=== PATIENT | male | born 1970 | race Caucasian/White ===

== ENCOUNTER 2016-10-11 21:36 | Emergency (ER) ==
[2016-10-11 21:45] VITALS: BP 194/122; TEMP 98.3; BMI 37.1
[2016-10-11] MEDS ORDERED: CATAPRES PO STA ×2 (21:48→23:08)
[2016-10-11] MEDS ORDERED: NORVASC PO STA ×2 (21:48→23:07)
[2016-10-11] MEDS ORDERED: VASOTEC IV IVP STA (21:49)
[2016-10-11 22:01] LABS: BILIRUBIN,URINE Negative (NEGATIVE); KETONES,URINE Negative (NEGATIVE); LEUKOCYTE ESTERASE ,URINE Trace (NEGATIVE); NITRITE,URINE Negative (NEGATIVE); PH,URINE 5.5 (5-9); PROTEIN,URINE 2+ (NEGATIVE); URINE, BLOOD Trace-lysed (NEGATIVE)
[2016-10-11 22:06] LABS: ADD URINE MICROSCOPIC YES
[2016-10-11 22:07] LABS: BACTERIA,URINE TRACE (NOT PRESENT)
[2016-10-11 22:09] LABS: BASOPHILS % (AUTO) 0.4 % (0.0-3.0); EOSINOPHILS # (AUTO) 0.1 K/ul (0.0-0.7); EOSINOPHILS % (AUTO) 1.3 % (0.0-7.0); HEMATOCRIT 45.4 % (42.0-52.0); IMMATURE GRANULOCYTE % (AUTO) 0.3 % (0.0-5.0); LYMPHOCYTES # (AUTO) 2.6 K/uL (0.60-3.4); MEAN CORPUSCULAR HEMOGLOBIN 28.2 pg (27.0-31.0); MEAN CORPUSCULAR HGB CONC 35.2 (31.8-35.4); MEAN CORPUSCULAR VOLUME 79.9 fl (80.0-94.0); MONOCYTES # (AUTO) 0.6 K/uL (0.4-2.0); MONOCYTES % (AUTO) 6.7 (0-10); NEUTROPHILS # (AUTO) 5.8 K/ul (2.0-6.9); NEUTROPHILS % (AUTO) 63.3; PLATELET COUNT 243 10^3/uL (140-440); RED BLOOD COUNT 5.68 10^6/ul (4.70-6.10); WHITE BLOOD COUNT 9.23 K/ul (4.2-10.2)
[2016-10-11 22:50] LABS: ALBUMIN 4.3 g/dL (3.4-5.0); ALBUMIN/GLOBULIN RATIO 1.43; ANION GAP 15.3; BILIRUBIN,TOTAL 0.64 mg/dL (0.00-1.20); BUN/CREATININE RATIO 20.21; CALCIUM 9.5 mg/dL (8.2-10.2); CREATINE KINASE MB 2.5 ng/ml (0.0-3.6); CREATININE 0.94 mg/dL (0.60-1.10); POTASSIUM 3.3 mmol/L (3.5-5.1); TOTAL PROTEIN 7.3 g/dL (6.4-8.2); TROPONIN I 0.011 ng/ml (0.0000-0.4000)
[2016-10-11] MEDS ORDERED: APRESOLINE PO STA (23:37)
--- NOTE | 2016-10-12 00:54 | ED.PDOC ---
General ED Provider: Dr. NASIM KING-ER Chief Complaint: Hypertension Stated Complaint: masha not been taking my bp meds --its 230/120--denies krishnan or chest painj Time Seen by Physician: 21:40 Mode of Arrival: Walk-In Information Source: Patient Exam Limitations: No limitations Nursing and Triage Documentation Reviewed and Agree: Yes Cardiovascular Complaint Exam - Hypertension Complaint/Exam Onset/Duration: 3 dayus Symptoms Are: Still present Timing: Constant Reported B/P Prior to Arrival: 230/130 Aggravating: Reports: None Alleviating: Reports: None Associated Signs and Symptoms: Denies: Chest pain, Vision changes, Anxiety, Recent stress, Headache, Numbness, Tingling, Weakness, Dizziness, Short of air, Swelling Related History: Reports: Similar episode Recent Change in Medications: No A/V Nicking: No Papilledema Present: No JVD Present: No Carotid Bruit Present: No Femoral Pulses Bounding: No Quality Indicator For Non-Traumatic Chest Pain/Syncope: EKG Performed Review of Systems - Review Of Systems Constitutional: Reports: No symptoms Eyes: Reports: No symptoms Ears, Nose, Mouth, Throat: Reports: No symptoms Respiratory: Reports: No symptoms Cardiac: Reports: No symptoms GI: Reports: No symptoms : Reports: No symptoms Musculoskeletal: Reports: No symptoms Skin: Reports: No symptoms Neurological: Reports: No symptoms Endocrine: Reports: No symptoms Hematologic/Lymphatic: Reports: No symptoms All Other Systems: Reviewed and Negative Past Medical History - Past Medical History Endocrine: Reports: Unknown Cardiovascular: Reports: Unknown Respiratory: Reports: Unknown Hematological: Reports: Unknown Gastrointestinal: Reports: Unknown Genitourinary: Reports: Unknown Neuro/Psych: Reports: Unknown Musculoskeletal: Reports: Unknown Cancer: Reports: Unknown - Surgical History General Surgical History: Reports: Unknown - Family History Family History: Reports: Unknown - Social History Smoking Status: Current every day smoker Hx Substance Use: No Alcohol Screening: Occasionally Lives: With family - Immunizations Tetanus Shot up to Date: No (unsure) Physical Exam - Physical Exam Appearance: Well-appearing, No pain distress, Well-nourished Eyes: KAMILLA, EOMI, Conjunctiva clear ENT: Ears normal, Nose normal, Oropharynx normal Neck: Supple Respiratory: Airway patent, Breath sounds clear, Breath sounds equal, Respirations nonlabored Cardiovascular: RRR, Pulses normal, No rub, No murmur GI/: Soft, Nontender, No masses, Bowel sounds normal, No Organomegaly Musculoskeletal: Normal strength, ROM intact, No edema, No calf tenderness Skin: Warm, Dry, Normal color Neurological: Sensation intact, Motor intact, Reflexes intact, Cranial nerves intact, Alert, Oriented Psychiatric: Affect appropriate, Mood appropriate Interpretation - EKG Interpretation Time of EKG #1: 00:54 Rate: Normal Rhythm: Sinus Ectopy: None Cedar: NL ST Segment: Normal Re-Evaluation - Re-Evaluation Time of Re-Evaluation: 00:54 Status: Improved Vital Signs Stable: Yes Pain Level: 0 Appearance: NAD Lungs: Clear Skin: Warm and Dry Neuro: Alert and Oriented X3 CV: RRR Critical Care Note - Critical Care Note Total Time (mins): 0 Course - Course Hematology/Chemistry: 10/11/16 22:00 10/11/16 22:00 Orders, Labs, Meds: Lab Review 10/11/16 10/11/16 21:51 22:00 WBC 9.23 RBC 5.68 Hgb 16.0 Hct 45.4 MCV 79.9 L MCH 28.2 MCHC 35.2 RDW Coeff of [place] 13.6 Plt Count 243 Immature Gran % (Auto) 0.3 Neut % (Auto) 63.3 Lymph % (Auto) 28.0 Payne % (Auto) 6.7 Eos % (Auto) 1.3 Baso % (Auto) 0.4 Immature Gran # (Auto) 0.0 Neut # 5.8 Lymph # 2.6 Payne # 0.6 Eos # 0.1 Baso # 0.0 Sodium 140 Potassium 3.3 L Chloride 105 Carbon Dioxide 23 Anion Gap 15.3 BUN 19 H Creatinine 0.94 Estimated GFR (MDRD) 86.00 BUN/Creatinine Ratio 20.21 Glucose 116 H Calcium 9.5 Total Bilirubin 0.64 AST 27 ALT 38 Alkaline Phosphatase 72 Total Creatine Kinase 487 CK-MB (CK-2) 2.5 CK-MB (CK-2) % 0.66219 Troponin I 0.0110 Total Protein 7.3 Albumin 4.3 Globulin 3.0 Albumin/Globulin Ratio 1.43 TSH 2.593 Free T4 1.08 Urine Color Yellow Urine Clarity Clear Urine pH 5.5 Ur Specific [place] >=1.030 Urine Protein 2+ Urine Glucose (UA) Negative Urine Ketones Negative Urine Blood Trace-lysed Urine Nitrite Negative Urine Bilirubin Negative Urine Urobilinogen 0.2 Ur Leukocyte Esterase Trace Urine Microscopic RBC 2-5 Urine Microscopic WBC 5-10 Ur Squamous Epith Cells 0-2 Urine Bacteria Trace Orders Category Date Time Status EKG-(ED ONLY) Stat CARDIO 10/11/16 21:47 Completed Van Driver [ED CRACKER AND COOKIE MACHINE OPERATOR APPLIED] .ONCE EMERGENCY 10/11/16 21:47 Active IV [ED IV/MEDIPORT/POWERPORT] .ONCE EMERGENCY 10/11/16 21:49 Active CBC W/ AUTO DIFF Stat LAB 10/11/16 22:00 Completed COMPREHENSIVE METABOLIC PANEL Stat LAB 10/11/16 22:00 Completed CREATINE KINASE Stat LAB 10/11/16 22:00 Completed FREE T4 (FREE THYROXINE) Stat LAB 10/11/16 22:00 Completed THYROID STIMULATING HORMONE Stat LAB 10/11/16 22:00 Completed TROPONIN I Stat LAB 10/11/16 22:00 Completed URINALYSIS C & S IF INDICATED Stat LAB 10/11/16 21:51 Completed URINE CULTURE Stat LAB 10/11/16 22:07 Received 0.9 % Sodium Chloride [Saline Flush] MEDS 10/11/16 21:49 Ordered 1 syr IVF PRN PRN Amlodipine Besylate [Norvasc] MEDS 10/11/16 21:48 Discontinued 5 mg PO ONCE STA Amlodipine Besylate [Norvasc] MEDS 10/11/16 23:07 Discontinued 5 mg PO ONCE STA Clonidine HCl [Catapres] MEDS 10/11/16 21:48 Discontinued 0.1 mg PO ONCE STA Clonidine HCl [Catapres] MEDS 10/11/16 23:08 Discontinued 0.1 mg PO ONCE STA Enalaprilat Dihydrate [Vasotec IV] MEDS 10/11/16 21:49 Discontinued 2.5 mg IVP ONCE STA Hydralazine HCl [Apresoline] MEDS 10/11/16 23:37 Discontinued 25 mg PO ONCE STA Medications Generic Name Dose Route Start Last Admin Trade Name Freq PRN Reason Stop Dose Admin Sodium Chloride 1 syr 10/11/16 21:49 10/11/16 22:14 Saline Flush IVF 1 syr PRN PRN Administration To flush IV Discontinued Medications Generic Name Dose Route Start Last Admin Trade Name Freq PRN Reason Stop Dose Admin Amlodipine Besylate 5 mg 10/11/16 21:48 10/11/16 22:13 Norvasc PO 10/11/16 21:49 5 mg ONCE STA Administration Amlodipine Besylate 5 mg 10/11/16 23:07 10/11/16 23:13 Norvasc PO 10/11/16 23:08 5 mg ONCE STA Administration Clonidine 0.1 mg 10/11/16 21:48 10/11/16 22:13 Catapres PO 10/11/16 21:49 0.1 mg ONCE STA Administration Clonidine 0.1 mg 10/11/16 23:08 10/11/16 23:13 Catapres PO 10/11/16 23:09 0.1 mg ONCE STA Administration Enalaprilat 2.5 mg 10/11/16 21:49 10/11/16 22:13 Vasotec Iv IVP 10/11/16 21:50 2.5 mg ONCE STA Administration Hydralazine HCl 25 mg 10/11/16 23:37 10/11/16 23:47 Apresoline PO 10/11/16 23:38 25 mg ONCE STA Administration Vital Signs: Temp Pulse Resp BP Pulse Ox 10/11/16 21:37 98.3 F 77 20 194/122 H 98 PINKY Risk Score PINKY Risk Score: Risk Score Odds of by 30D 0 0.1 (0.1-0.2) 1 0.3 (0.2-0.3) 2 0.4 (0.3-0.5) 3 0.7 (0.6-0.9) 4 1.2 (1.0-1.5) 5 2.2 (1.9-2.6) 6 3.0 (2.5-3.6) 7 4.8 (3.8-6.1) Departure - Departure Time of Disposition: 00:54 Disposition: HOME SELF-CARE Discharge Problem: HTN (hypertension) Qualifiers: Hypertension type: essential hypertension Qualifier Code: (I10) Essential ( primary) hypertension Instructions: Chronic Hypertension (ED) Condition: Good Pt referred to PMD for follow-up: Yes Additional Instructions: norvasc 10 mg #30---zestoretic 20/25 q daily #30--monitor bp and f/u with pcp this week Allergies/Adverse Reactions: Allergies No Known Allergies Allergy (Unverified 10/11/16 21:43) Home Medications: Ambulatory Orders 1 [No Reported Medications] 10/11/16 Disposition Discussed With: Patient, Family
== END 2016-10-12 01:02 | disposition home or self-care (01) ==
LOC: ED 21:36
DX: I10 Essential (primary) hypertension (principal); Z91.14 Patient's other noncompliance with medication regimen; F17.210 Nicotine dependence, cigarettes, uncomplicated
CPT/HCPCS: 36415; 80053; 81001; 82550; 82553; 84439; 84443; 84484; 85025; 87086; 93005; 93010; 96374; 99284

== ENCOUNTER 2017-02-04 13:08 | Outpatient (CLI) ==
[2017-02-04 13:37] LABS: BASOPHILS # (AUTO) 0.1 K/uL (0-0.2); BASOPHILS % (AUTO) 0.8 % (0.0-3.0); EOSINOPHILS # (AUTO) 0.3 K/ul (0.0-0.7); EOSINOPHILS % (AUTO) 4.4 % (0.0-7.0); HEMATOCRIT 46.9 % (42.0-52.0); HEMOGLOBIN 16.4 g/dl (14.0-18.0); IMMATURE GRANULOCYTE % (AUTO) 0.6 % (0.0-5.0); LYMPHOCYTES # (AUTO) 1.7 K/uL (0.60-3.4); LYMPHOCYTES % (AUTO) 27.3 (10.0-50.0); MEAN CORPUSCULAR HEMOGLOBIN 28.8 pg (27.0-31.0); MEAN CORPUSCULAR VOLUME 82.4 fl (80.0-94.0); MONOCYTES # (AUTO) 0.3 K/uL (0.4-2.0); MONOCYTES % (AUTO) 4.4 (0-10); NEUTROPHILS # (AUTO) 3.9 K/ul (2.0-6.9); NEUTROPHILS % (AUTO) 62.5; PLATELET COUNT 291 10^3/uL (140-440); RED BLOOD COUNT 5.69 10^6/ul (4.70-6.10)
[2017-02-04 14:07] LABS: ALBUMIN/GLOBULIN RATIO 1.08; ANION GAP 14.8; BILIRUBIN,TOTAL 0.7 mg/dL (0.00-1.20); BUN/CREATININE RATIO 11.22; CALCIUM 10.4 mg/dL (8.2-10.2); CHOL/HDL RATIO 4.5 (4.5-6.4); CREATININE 0.98 mg/dL (0.60-1.10); POTASSIUM 3.8 mmol/L (3.5-5.1); TOTAL PROTEIN 7.7 g/dL (6.4-8.2)
== END 2017-02-04 13:09 | disposition home or self-care (01) ==
LOC: LAB 13:08
PROVIDERS: ATTEND Emergency Medicine
DX: R73.9 Hyperglycemia, unspecified (principal); E66.9 Obesity, unspecified; I10 Essential (primary) hypertension
CPT/HCPCS: 36415; 80053; 80061; 83036; 84443; 85025

== ENCOUNTER 2017-04-19 13:11 | Outpatient (CLI) ==
[2017-04-19 13:38] LABS: ALBUMIN 4.5 g/dL (3.4-5.0); ALBUMIN/GLOBULIN RATIO 1.25; ANION GAP 19.4; BILIRUBIN,TOTAL 0.8 mg/dL (0.00-1.20); BUN/CREATININE RATIO 11.51; CALCIUM 10.4 mg/dL (8.2-10.2); CREATININE 1.39 mg/dL (0.60-1.10); POTASSIUM 4.4 mmol/L (3.5-5.1); TOTAL PROTEIN 8.1 g/dL (6.4-8.2)
[2017-04-19 21:30] VITALS: BMI 34.3
== END 2017-04-19 13:12 | disposition home or self-care (01) ==
LOC: LAB 13:11
PROVIDERS: ATTEND Emergency Medicine
DX: R73.9 Hyperglycemia, unspecified (principal); I10 Essential (primary) hypertension
CPT/HCPCS: 36415; 80053; 83036

== ENCOUNTER 2017-04-19 17:38 | Inpatient (IN) ==
--- NOTE | 2017-04-19 18:22 | ED.PDOC ---
General ED Provider: Dr. CONNIE LAUREANO Chief Complaint: Diabetes Stated Complaint: high blood sugar Time Seen by Physician: 17:45 (the clinic contacted the pt for high blood sugar ) Mode of Arrival: Walk-In Information Source: Patient Exam Limitations: No limitations [facility] Nursing and Triage Documentation Reviewed and Agree: Yes (no chest pain) Reviewed sepsis parameters & appropriate labs ordered?: Yes System Inflammatory Response Syndrome: Not Applicable System Inflammatory Response Syndrome: Not Applicable Endocrine Complaint Exam - Diabetic Complication Complaint/Exam Onset/Duration: today Timing: Constant Initial Severity: Moderate Current Severity: Moderate Character: Alert Aggravating: Reports: None Alleviating: Reports: None Associated Signs and Symptoms: Reports: Polyuria. Denies: Decreased LOC, Polydipsia, Polyphagia, Weight loss, Abdominal pain, Nausea, Vomiting, Fever, Diaphoresis, Fruity breath Related History: Reports: DM 2 Cardiac Risk Factors: Reports: Hypertension, Elevated lipids CVA Risk Factors: Reports: Hypertension Serious Bacterial Infection Risk Factors: Reports: None Related Surgical History: Reports: None Acetone on Breath: No Dry Mucous Membranes: No Kussmaul Respirations: No Glascow Coma Scale (see protocol): 15 Meningeal Signs: No Focal Weakness: None Focal Sensory Loss: None Gait: Normal Nystagmus Present: No Gag Reflex Present: Yes Finger to Nose: Normal Babinski Sign: Negative Right, Negative Left Differential Diagnoses: Diabetic Ketoacidosis, Hyperosmolar State, Hypoglycemia , Pneumonia Quality Indicator For Non-Traumatic Chest Pain/Syncope: EKG Performed Review of Systems - Review Of Systems Constitutional: Reports: Chills, Fever, Malaise Eyes: Reports: No symptoms Ears, Nose, Mouth, Throat: Reports: No symptoms Respiratory: Reports: Cough, Short of air Cardiac: Reports: No symptoms GI: Reports: No symptoms : Reports: No symptoms Musculoskeletal: Reports: No symptoms Skin: Reports: No symptoms Neurological: Reports: No symptoms Endocrine: Reports: No symptoms Hematologic/Lymphatic: Reports: No symptoms All Other Systems: Reviewed and Negative Past Medical History - Past Medical History Previously Healthy: Yes Endocrine: Reports: Unknown Cardiovascular: Reports: Unknown Respiratory: Reports: Unknown Hematological: Reports: Unknown Gastrointestinal: Reports: Unknown Genitourinary: Reports: Unknown Neuro/Psych: Reports: Unknown Musculoskeletal: Reports: Unknown Cancer: Reports: Unknown - Surgical History General Surgical History: Reports: Unknown - Family History Family History: Reports: Unknown - Social History Smoking Status: Current every day smoker, Heavy tobacco smoker Hx Substance Use: No Alcohol Screening: Occasionally Physical Exam - Physical Exam Appearance: Well-appearing, No pain distress, Well-nourished Eyes: KAIMLLA, EOMI, Conjunctiva clear ENT: Ears normal, Nose normal, Oropharynx normal Respiratory: Rhonchi Cardiovascular: RRR, Pulses normal, No rub, No murmur GI/: Soft, Nontender, No masses, Bowel sounds normal, No Organomegaly Musculoskeletal: Normal strength, ROM intact, No edema, No calf tenderness Skin: Warm, Dry, Normal color Neurological: Sensation intact, Motor intact, Reflexes intact, Cranial nerves intact, Alert, Oriented Psychiatric: Affect appropriate, Mood appropriate Critical Care Note - Critical Care Note Total Time (mins): 0 Course - Course Hematology/Chemistry: 04/23/17 05:25 04/24/17 14:03 Orders, Labs, Meds: Lab Review 04/19/17 04/19/17 04/19/17 18:03 18:03 18:24 WBC 10.98 H RBC 5.64 Hgb 15.7 Hct 43.3 MCV 76.8 L MCH 27.8 MCHC 36.3 H RDW Coeff of [place] 12.1 Plt Count 256 Immature Gran % (Auto) 0.7 Neut % (Auto) 81.7 Lymph % (Auto) 10.9 Piatt % (Auto) 5.7 Eos % (Auto) 0.5 Baso % (Auto) 0.5 Immature Gran # (Auto) 0.1 Neut # 9.0 H Lymph # 1.2 Piatt # 0.6 Eos # 0.1 Baso # 0.1 Puncture Site Rb O2 Saturation 95.0 ABG pH 7.372 ABG pCO2 32.4 L ABG pO2 75.0 L ABG HCO3 18.8 L ABG Total CO2 20 L ABG Base Excess -6 L Edgar Test + FiO2 % 21.0 Sodium 128 L Potassium 4.5 Chloride 88 L Carbon Dioxide 20 L Anion Gap 24.5 BUN 23 H Creatinine 2.46 H D Estimated GFR (MDRD) 28.00 BUN/Creatinine Ratio 9.34 Glucose 720 H* D Calcium 10.0 Total Bilirubin 0.96 AST 19 ALT 32 Alkaline Phosphatase 152 H D Total Protein 7.7 Albumin 4.3 Globulin 3.4 Albumin/Globulin Ratio 1.26 Orders Category Date Time Status ADMIT PATIENT INPATIENT .TO MEDSURG (MONITORED BED) ADMISSION 04/19/17 18: 52 Completed ABG DRAW REQUEST Stat CARDIO 04/19/17 18:24 Completed EKG-(ED ONLY) Stat CARDIO 04/19/17 18:23 Completed EKG-(IP & OP ONLY) DAILY CARDIO 04/20/17 06:00 Completed EKG-(IP & OP ONLY) DAILY CARDIO 04/21/17 06:00 Completed EKG-(IP & OP ONLY) DAILY CARDIO 04/22/17 06:00 Completed ACTIVITY .BR with BRP CARE 04/19/17 18:52 Active BLOOD GLUCOSE MONITORING Q4HR CARE 04/19/17 18:52 Completed GIVE HS SNACK 2100 CARE 04/19/17 18:54 Active INTAKE & OUTPUT Q8HR CARE 04/19/17 18:52 Active Neuro Check [NEUROLOGICAL CHECKS] Q6HR CARE 04/19/17 18:56 Inactive TELEMETRY MONITORING TELE CARE 04/19/17 18:53 Active VITAL SIGNS Q4HR CARE 04/19/17 18:52 Active ADA 1800 SAMRA. DIET DIETARY 04/19/17 Dinner Completed HS SNACK DIETARY 04/19/17 Dinner Completed ABG Stat LAB 04/19/17 18:24 Completed BASIC METABOLIC PANEL DAILY@0600 LAB 04/20/17 04:30 Completed BASIC METABOLIC PANEL DAILY@0600 LAB 04/21/17 04:30 Completed CBC W/ AUTO DIFF DAILY@0600 LAB 04/20/17 04:30 Completed CBC W/ AUTO DIFF DAILY@0600 LAB 04/21/17 04:30 Completed CBC W/ AUTO DIFF Stat LAB 04/19/17 18:03 Completed COMPREHENSIVE METABOLIC PANEL Stat LAB 04/19/17 18:03 Completed URINALYSIS C & S IF INDICATED Stat LAB 04/19/17 18:23 Completed Insulin Regular, Human [Humulin R] MEDS 04/19/17 18:55 Discontinued See Protocol SUBCUT PRN PRN Lisinopril [Zestril] MEDS 04/19/17 21:00 Discontinued 40 mg PO BID Metoprolol Tartrate [Lopressor] MEDS 04/19/17 21:00 Discontinued 50 mg PO BID Sodium Chloride 0.9% [Sodium Chloride] 1,000 ml MEDS 04/19/17 19:00 Discontinued IV 125 mls/hr CHEST, 2 VIEWS PA & LAT Stat RADS 04/19/17 18:23 Completed Medications Discontinued Medications Generic Name Dose Route Start Last Admin Trade Name [place] PRN Reason Stop Dose Admin Amlodipine Besylate 10 mg 04/20/17 09:00 04/25/17 08:13 Norvasc PO 10 mg DAILY MONO Administration Enoxaparin Sodium 40 mg 04/21/17 09:00 04/25/17 08:13 Lovenox SUBCUT 40 mg DAILY MONO Administration Enoxaparin Sodium 40 mg 04/20/17 09:26 04/20/17 11:17 Lovenox SUBCUT 04/20/17 09:27 40 mg ONCE STA Administration Glipizide 10 mg 04/20/17 17:30 04/21/17 18:28 Glucotrol PO 10 mg BIDWM MONO Administration Sodium Chloride 1,000 mls @ 125 mls/hr 04/19/17 19:00 04/20/17 12:52 Sodium Chloride IV Not Given .Q8H MONO Insulin Human Regular 100 unit 100 mls @ 5 mls/hr 04/19/17 19:45 04/20/17 10: 39 / Sodium Chloride IV 4 unit/hr .Q20H MONO 4 mls/hr Protocol Titration 5 UNIT/HR Potassium Chloride/Dextrose/Sod Cl 1,000 mls @ 125 mls/hr 04/20/17 11:30 11:22 D5%-Ns-Kcl 20 Meq/L Iv Jenna IV 125 mls/hr .Q8H MONO Administration Potassium Chloride/Dextrose/Sod Cl 1,000 mls @ 100 mls/hr 04/20/17 19:30 18:29 D5%-Ns-Kcl 20 Meq/L Iv Jenna IV Not Given .Q10H MONO Insulin Human Regular 100 unit 100 mls @ 4 mls/hr 04/20/17 19:30 04/22/17 18: 29 / Sodium Chloride IV Not Given .Q24H MONO Protocol 4 UNIT/HR Dextrose/Sodium Chloride 1,000 mls @ 100 mls/hr 04/22/17 17:00 04/24/17 02:29 Dextrose 5%-Ns Iv Solution IV Not Given .Q10H MONO Insulin Human Isoph/Insulin Regular 24 unit 04/22/17 08:00 04/25/17 08:12 Humulin 70-30 SUBCUT 24 unit BID INSULIN MONO Administration Insulin Human Isoph/Insulin Regular 20 unit 04/24/17 17:58 04/24/17 18:01 Humulin 70-30 SUBCUT 04/24/17 17:59 20 unit ONCE STA Administration Insulin Human Regular 0 unit 04/19/17 18:55 04/20/17 13:22 Humulin R SUBCUT 6 unit PRN PRN Administration Hyperglycemica Protocol Insulin Human Regular 0 unit 04/22/17 07:53 04/25/17 10:18 Humulin R SUBCUT 3 unit PRN PRN Administration Hyperglycemica Protocol Lisinopril 40 mg 04/19/17 21:00 04/25/17 08:13 Zestril PO 40 mg BID MONO Administration Metformin HCl 1,000 mg 04/20/17 17:30 04/25/17 08:13 Glucophage PO 1,000 mg BIDWM MONO Administration Metoprolol Tartrate 50 mg 04/19/17 21:00 04/25/17 08:12 Lopressor PO 50 mg BID MONO Administration Pantoprazole Sodium 40 mg 04/21/17 06:30 04/25/17 05:49 Protonix PO 40 mg QDAC MONO Administration Pantoprazole Sodium 40 mg 04/20/17 08:47 04/20/17 09:12 Protonix PO 04/20/17 08:48 40 mg ONCE STA Administration Potassium Chloride 40 meq 04/20/17 08:47 04/20/17 09:11 K-Dur PO 04/20/17 08:48 40 meq ONCE STA Administration Potassium Chloride 40 meq 04/23/17 14:20 04/23/17 14:55 K-Dur PO 04/23/17 14:21 40 meq ONCE STA Administration Sodium Chloride 1 syr 04/19/17 19:31 04/19/17 19:33 Saline Flush IVF 1 syr PRN PRN Administration To flush IV Sodium Chloride 1 syr 04/23/17 21:00 04/24/17 20:21 Saline Flush IVF 1 syr Q8HR MONO Administration Vital Signs: Temp Pulse Resp BP Pulse Ox 04/19/17 17:39 98.0 F 88 20 108/67 95 Departure - Departure Time of Disposition: 11:00 Disposition: ADMITTED INPATIENT Discharge Problem: Uncontrolled diabetes mellitus Qualifiers: Diabetes mellitus type: type 2 Condition: Good Pt referred to PMD for follow-up: Yes Allergies/Adverse Reactions: Allergies No Known Allergies Allergy (Verified 04/19/17 17:50) Home Medications: Ambulatory Orders Metformin HCl 1,000 mg PO BID #60 tablet 04/25/17 Disposition Discussed With: Patient, Family
[2017-04-19] MEDS ORDERED: HUMULIN R SUBCUT PRN (18:55)
[2017-04-19] MEDS: SODIUM CHLORIDE 1,000 ML IV SCH (19:34)
[2017-04-19] MEDS ORDERED: HUMULIN R 100 UNIT in SODIUM CHLORIDE 100 ML IV SCH (19:45)
[2017-04-19] MEDS ORDERED: TYLENOL LIQUID 650 MG/20.3 ML ONE (20:51)
[2017-04-19] MEDS ORDERED: LOPRESSOR ONE (20:51)
[2017-04-19] MEDS: ZESTRIL PO SCH (20:58)
[2017-04-19 21:30] VITALS: BMI 34.3
[2017-04-19] MEDS: LOPRESSOR PO SCH (22:34)
[2017-04-20] MEDS: SODIUM CHLORIDE 1,000 ML IV SCH ×2 (03:43→12:52)
--- NOTE | 2017-04-20 07:45 | DI ---
EXAM: PA and lateral views of the chest HISTORY: Cough. COMPARISON: None FINDINGS: The cardiomediastinal silhouette is normal. There is no pneumothorax or pleural effusion. There is no consolidation, nodule or mass. The osseous structures demonstrate degenerative disease . There are surgical clips in the upper abdomen. IMPRESSION: No acute cardiopulmonary process
[2017-04-20] MEDS ORDERED: PROTONIX PO STA (08:47)
[2017-04-20] MEDS ORDERED: K-DUR PO STA (08:47)
[2017-04-20] MEDS ORDERED: NON-FORMULARY MEDICATION (Amlodipine Besylate [Amlodipine Besylate] 10 MG) PO SCH (09:00)
[2017-04-20] MEDS: NORVASC PO SCH (09:11)
[2017-04-20] MEDS: LOPRESSOR PO SCH ×2 (09:12→20:41)
[2017-04-20] MEDS: ZESTRIL PO SCH ×2 (09:12→20:41)
[2017-04-20] MEDS ORDERED: LOVENOX SUBCUT STA (09:26)
[2017-04-20] MEDS ORDERED: D5%-NS-KCL 20 MEQ/L IV SOL 1,000 ML IV SCH (11:30)
--- NOTE | 2017-04-20 11:52 | CT ---
EXAM: CT scan thorax without contrast HISTORY: Chest pressure COMPARISON: None. FINDINGS: Contiguous axial images obtained through the thorax without contrast utilizing 5-mm collim ation. Sagittal and coronal reconstructions were imaged and reviewed.. The thoracic inlet is unrema rkable. There are subcentimeter pretracheal lymph nodes. The heart is normal in size with mild derian nary artery calcification. There is no pericardial effusion. The lungs are clear bilaterally. Fatt y infiltration is seen within the visualized liver. There has been prior cholecystectomy.. Degenera tive changes are seen in the mid dorsal spine. IMPRESSION: No acute intrathoracic findings.. Prior cholecystectomy. Fatty liver.
[2017-04-20] MEDS: GLUCOPHAGE PO SCH (17:57)
[2017-04-20] MEDS: GLUCOTROL PO SCH (17:57)
[2017-04-20] MEDS: HUMULIN R 100 UNIT in SODIUM CHLORIDE 100 ML IV SCH (19:37)
[2017-04-20] MEDS: D5%-NS-KCL 20 MEQ/L IV SOL 1,000 ML IV SCH (19:45)
[2017-04-20] MEDS ORDERED: HUMULIN R ONE (23:55)
[2017-04-21] MEDS: D5%-NS-KCL 20 MEQ/L IV SOL 1,000 ML IV SCH ×2 (05:47→15:45)
[2017-04-21] MEDS: PROTONIX PO SCH (05:47)
[2017-04-21] MEDS: NORVASC PO SCH (08:41)
[2017-04-21] MEDS: GLUCOTROL PO SCH ×2 (08:41→18:28)
[2017-04-21] MEDS: LOPRESSOR PO SCH ×2 (08:41→21:01)
[2017-04-21] MEDS: GLUCOPHAGE PO SCH ×2 (08:41→18:28)
[2017-04-21] MEDS: ZESTRIL PO SCH ×2 (08:41→21:01)
[2017-04-21] MEDS: LOVENOX SUBCUT SCH (08:42)
[2017-04-22] MEDS: D5%-NS-KCL 20 MEQ/L IV SOL 1,000 ML IV SCH ×2 (05:06→18:29)
[2017-04-22] MEDS: PROTONIX PO SCH (05:43)
[2017-04-22] MEDS: GLUCOPHAGE PO SCH ×2 (08:09→16:50)
[2017-04-22] MEDS: ZESTRIL PO SCH ×2 (08:09→21:23)
[2017-04-22] MEDS: NORVASC PO SCH (08:09)
[2017-04-22] MEDS: LOPRESSOR PO SCH ×2 (08:10→21:23)
[2017-04-22] MEDS: LOVENOX SUBCUT SCH (08:10)
[2017-04-22] MEDS: HUMULIN 70-30 SUBCUT SCH ×2 (08:16→16:50)
[2017-04-22] MEDS: HUMULIN R SUBCUT PRN ×2 (14:12→22:05)
[2017-04-22] MEDS: DEXTROSE 5%-NS IV SOLUTION 1,000 ML IV SCH (16:53)
[2017-04-22] MEDS: HUMULIN R 100 UNIT in SODIUM CHLORIDE 100 ML IV SCH (18:29)
[2017-04-23] MEDS: HUMULIN R SUBCUT PRN ×4 (02:24→14:56)
[2017-04-23] MEDS: DEXTROSE 5%-NS IV SOLUTION 1,000 ML IV SCH (03:29)
[2017-04-23] MEDS: PROTONIX PO SCH (06:08)
[2017-04-23] MEDS: HUMULIN 70-30 SUBCUT SCH ×2 (07:17→17:13)
[2017-04-23] MEDS: NORVASC PO SCH (09:56)
[2017-04-23] MEDS: ZESTRIL PO SCH ×2 (09:56→20:52)
[2017-04-23] MEDS: GLUCOPHAGE PO SCH ×2 (09:57→17:11)
[2017-04-23] MEDS: LOPRESSOR PO SCH ×2 (09:57→20:52)
[2017-04-23] MEDS: LOVENOX SUBCUT SCH (09:57)
[2017-04-23] MEDS ORDERED: K-DUR PO STA (14:20)
[2017-04-24] MEDS: HUMULIN R SUBCUT PRN ×5 (02:08→21:35)
[2017-04-24] MEDS: DEXTROSE 5%-NS IV SOLUTION 1,000 ML IV SCH (02:29)
[2017-04-24] MEDS: PROTONIX PO SCH (06:16)
[2017-04-24] MEDS: HUMULIN 70-30 SUBCUT SCH ×2 (07:35→18:03)
[2017-04-24] MEDS: GLUCOPHAGE PO SCH ×2 (09:09→18:02)
[2017-04-24] MEDS: LOPRESSOR PO SCH ×2 (09:10→20:21)
[2017-04-24] MEDS: NORVASC PO SCH (09:10)
[2017-04-24] MEDS: LOVENOX SUBCUT SCH (09:10)
[2017-04-24] MEDS: ZESTRIL PO SCH ×2 (09:10→20:21)
[2017-04-24] MEDS ORDERED: HUMULIN 70-30 SUBCUT STA (17:58)
[2017-04-25] MEDS: HUMULIN R SUBCUT PRN ×2 (05:49→10:18)
[2017-04-25] MEDS: PROTONIX PO SCH (05:49)
[2017-04-25] MEDS: HUMULIN 70-30 SUBCUT SCH (08:12)
[2017-04-25] MEDS: LOPRESSOR PO SCH (08:12)
[2017-04-25] MEDS: ZESTRIL PO SCH (08:13)
[2017-04-25] MEDS: LOVENOX SUBCUT SCH (08:13)
[2017-04-25] MEDS: NORVASC PO SCH (08:13)
[2017-04-25] MEDS: GLUCOPHAGE PO SCH (08:13)
[2017-04-25 11:10] VITALS: BP 118/78; TEMP 98.2
--- NOTE | 2017-04-25 14:12 | PN ---
DATE OF SERVICE: 04/20/17 SUBJECTIVE: The patient is admitted with new onset diabetes and hyperosmolar/hyperglycemia. The patient has been started on insulin drip. Sugars are still in the 250-300 range. No nausea or vomiting. REVIEW OF SYSTEMS: CONSTITUTIONAL: No fever, no chills. HEENT: Normal. ENDOCRINE: No weight gain, no weight loss. CVS: No angina symptoms. No CHF symptoms. No palpitations. No atypical chest pain for CAD. No shortness of breath. No PND, no orthopnea. RESPIRATORY: No cough, no hemoptysis. GI: No nausea, no vomiting. No abdominal pain. : No hematuria. No polyuria. MUSCULOSKELETAL:. No joint swelling. PSYCHIATRIC: Not anxious. No depression. No suicidal thoughts. No homicidal thoughts. SKIN: Intact. No rash. PHYSICAL EXAMINATION: V/S: BP 128/85, respiratory rate 20, heart rate 76, temperature 97.4. HEENT: Normocephalic, atraumatic. Mucosa dry. NECK: Supple. No JVD, no carotid bruit. No lymphadenopathy. LUNGS: Clear to auscultation. No rales or rhonchi. HEART: S1, S2 normal. No S3. No murmur, gallop or regurgitation. ABDOMEN: Soft, nontender. Bowel sounds active. No rigidity. No rebound or guarding. No CVA tenderness. EXTREMITIES: No clubbing, cyanosis or pedal edema. MUSCULOSKELETAL: No joint swelling. NEUROLOGIC: Awake, alert, oriented times three. No focal deficit. LYMPHATIC: No lymph nodes palpable. SKIN: Intact. LABS: Sodium 134, potassium 3.3, chloride 99, bicarb 20, BUN 29, creatinine 1.54. Sugar 367. White count 10.35, hemoglobin 14.5, hematocrit 40.5, platelet count 257. ASSESSMENT: 1. Hyperosmolar/hyperglycemia 2. New onset diabetes 3. Hypertension, uncontrolled, labile 4. Obesity PLAN: 1. Continue the insulin drip 2. Start D5 Normal Saline at 100 mL/hr when the sugars are below 200 3. Will get the HB A1C, lipid profile and TSH TIME SPENT: More than 60 to 70 ICU minutes today MTDD
--- NOTE | 2017-04-25 14:51 | PN ---
DATE OF SERVICE: 04/21/17 SUBJECTIVE: Admitted with hyperosmolar, hypoglycemia. The patient's insulin drip was stopped yesterday afternoon but had to be started again yesterday night as sugars went up to 692. As of now, the patient is at 2 mcgs insulin drip running at, 266 sugar. REVIEW OF SYSTEMS: CONSTITUTIONAL: No fever, no chills. HEENT: Normal. ENDOCRINE: No weight gain, no weight loss. CVS: No angina symptoms. No CHF symptoms. No palpitations. No atypical chest pain for CAD. No shortness of breath. No PND, no orthopnea. RESPIRATORY: No cough, no hemoptysis. GI: No nausea, no vomiting. No abdominal pain. : No hematuria. No polyuria. MUSCULOSKELETAL:. No joint swelling. PSYCHIATRIC: Not anxious. No depression. No suicidal thoughts. No homicidal thoughts. SKIN: Intact. No rash. PHYSICAL EXAMINATION: V/S: BP 121/74, respiratory rate 18, heart rate 61, temperature 97.2, saturation 97. HEENT: Normocephalic, atraumatic. Mucosa dry. NECK: Supple. No JVD, no carotid bruit. No lymphadenopathy. LUNGS: Clear to auscultation. No rales or rhonchi. HEART: S1, S2 normal. No S3. No murmur, gallop or regurgitation. ABDOMEN: Soft, nontender. Bowel sounds active. No rigidity. No rebound or guarding. No CVA tenderness. EXTREMITIES: No clubbing, cyanosis or pedal edema. MUSCULOSKELETAL: No joint swelling. NEUROLOGIC: Awake, alert, oriented times three. No focal deficit. LYMPHATIC: No lymph nodes palpable. SKIN: Intact. LABS: Sodium 137, potassium 3.5, chloride 108, bicarb 20, BUN 19, creatinine 0.92, glucose 266. White count 6.83, hemoglobin 13.3, hematocrit 37.6, platelet count 79.2, saturation 205. ASSESSMENT: 1. HYPEROSMOLAR/HYPERGLYCEMIA NEEDING INSULIN DRIP 2. NEW ONSET DIABETES WITH A1C 11.7 3. HYPERTENSION 4. OBESITY PLAN: 1. Continue the insulin drip, titrate and decrease it 2. Continue Metformin and Glipizide 3. Regular diet 4. Out of bed to chair 5. Activity as tolerated 6. [employer]ilermaker Loftsman consultation 7. Will follow with the patient in daily rounds TIME SPENT: More than 60 to 70 ICU minutes MTDD
--- NOTE | 2017-04-27 13:42 | PN ---
DATE OF SERVICE: 04/22/17 SUBJECTIVE: The patient was admitted with new onset of hyperosmolar hyperglycemia. Sugars are 250 to 300 with Insulin drip running at 2 mcgs. We will be changing it to Insulin today. Diabetic diet is being discussed. No nausea, vomiting. REVIEW OF SYSTEMS: CONSTITUTIONAL: No fever, no chills. HEENT: Normal. ENDOCRINE: No weight gain, no weight loss. CVS: No angina symptoms. No CHF symptoms. No palpitations. No atypical chest pain for CAD. No shortness of breath. No PND, no orthopnea. RESPIRATORY: No cough, no hemoptysis. GI: No nausea, no vomiting. No abdominal pain. : No hematuria. No polyuria. MUSCULOSKELETAL:. No joint swelling. PSYCHIATRIC: Not anxious. No depression. No suicidal thoughts. No homicidal thoughts. SKIN: Intact. No rash. PHYSICAL EXAMINATION: V/S: Blood pressure 108/68, respiratory rate 18, heart rate 60, temperature 98.1 , saturation is 97. HEENT: Normocephalic, atraumatic. Mucosa dry. NECK: Supple. No JVD, no carotid bruit. No lymphadenopathy. LUNGS: Clear to auscultation. No rales or rhonchi. HEART: S1, S2 normal. No S3. No murmur, gallop or regurgitation. ABDOMEN: Soft, nontender. Bowel sounds active. No rigidity. No rebound or guarding. No CVA tenderness. EXTREMITIES: No clubbing, cyanosis or pedal edema. MUSCULOSKELETAL: No joint swelling. NEUROLOGIC: Awake, alert, oriented times three. No focal deficit. LYMPHATIC: No lymph nodes palpable. SKIN: Intact. LABS: White count 5.17, hemoglobin 13.1, hematocrit 37.4, platelet count 185, sodium 138, potassium 3.5, chloride 108, bicarb 21, BUN 10, creatinine 0.84, glucose 278. ASSESSMENT: 1. HYPEROSMOLAR HYPERGLYCEMIA ON INSULIN DRIP 2. HYPERTENSION, LABILE PLAN: 1. Will dc the Insulin drip and start the Humalog 70/30 24 units twice daily. 2. Accuchecks with coverage. 3. Out of bed to chair. 4. Activity as tolerated. TIME SPENT: More than 35 minutes today MTDD
--- NOTE | 2017-05-13 14:24 | HP ---
DATE OF SERVICE: 04/19/17 CHIEF COMPLAINT: Abnormal lab. HISTORY OF PRESENT ILLNESS: This is a 47 year old male who was seen in the [facility] office and I ordered the outpatient labs which showed the blood sugar of more than 500. At that time he was suggested to go to the emergency room for the evaluation and possible admission for the new onset of diabetes. The patient came to the emergency room and was seen by Dr. Bergman. The glucose was 720, BUN 23, creatinine 2.46, sodium 128. At that time, the patient was admitted to hospital for the hyperosmolar hyperglycemia and new onset of diabetes. REVIEW OF SYSTEMS: CONSTITUTIONAL: Weakness, tiredness. No fever, no chills. HEENT: Normal. ENDOCRINE: No weight gain; no weight loss. CVS: No chest pain. No PND, no orthopnea. No shortness of breath. No PND, no orthopnea. RESPIRATORY: No cough, no congestion. No hemoptysis. GI: No nausea, no vomiting. No abdominal pain. No melena. : Frequency of urination. No hematuria. MUSCULOSKELETAL: No joint swelling. PSYCHIATRIC: Not anxious. No depression. No suicidal thoughts. No homicidal thoughts. SKIN: Intact, no open lesions. PAST MEDICAL HISTORY: Hypertension labile, GERD. PAST SURGICAL HISTORY: None. PERSONAL HISTORY: Drinks beer every other day. No smoking and no drugs. FAMILY HISTORY: Significant for cancer. HOME MEDICATIONS: Lisinopril, Metoprolol and Amlodipine. ALLERGIES: No known drugs. PHYSICAL EXAMINATION: GENERAL: Mildly sick looking man lying in the bed and not in any distress. V/S: Blood pressure 108/67, respiratory rate 20, heart rate 95, temperature 98.0 , saturation 94 on 2 liters. HEENT: Atraumatic, normocephalic. No scleral icterus. Pallor positive. Mucosa dry. NECK: Supple. No JVD, no bruit. No lymphadenopathy. No thyromegaly. HEART: S1, S2 normal. No murmur. No cyanosis or clubbing. No ascites. LUNGS: Clear to auscultation. No rales or rhonchi. ABDOMEN: Soft, nontender. Bowel sounds are active. No CVA tenderness. No rigidity or guarding. EXTREMITIES: No cyanosis, clubbing or pedal edema. MUSCULOSKELETAL: Normal joints, no swelling. NEUROLOGIC: Normal. SKIN: Intact; no open lesions. LYMPHATIC: No lymph nodes palpable. LABS: Sodium 128, potassium 4.5, chloride 88, bicarb 20, BUN 23, creatinine 2.46 , glucose 720. White count 10.98, hemoglobin 15.7, hematocrit 43.3, platelet count 256. ASSESSMENT: 1. HYPEROSMOLAR HYPERGLYCEMIA, NEW ONSET DIABETES 2. ACUTE RENAL FAILURE 3. HYPONATREMIA SECONDARY TO THE HIGH SUGARS 4. HYPERTENSION LABILE, NONCOMPLIANCE WITH THE MEDICATIONS PLAN: 1. Admit the patient to the SCU. 2. Insulin drip. 3. IV fluids. 4. Accuchecks every hour. 5. Continue the Lisinopril, Metoprolol and Norvasc. 6. Diet: Diabetic and cardiac diet. 7. Activity of bed rest. 8. Will follow up with the patient in daily rounds. TIME SPENT: MORE THAN 70 minutes which is critical care time. MTDD
--- NOTE | 2017-05-13 14:32 | PN ---
DATE OF SERVICE: 04/23/17 SUBJECTIVE: The patient was admitted with uncontrolled diabetes and hyperosmolar hyperglycemia. The patient if off of the drip and getting NPH 24 units twice daily, which is helping him. The patient is up and about walking. REVIEW OF SYSTEMS: CONSTITUTIONAL: No fever, no chills. HEENT: Normal. ENDOCRINE: No weight gain, no weight loss. CVS: No angina symptoms. No CHF symptoms. No palpitations. No atypical chest pain for CAD. No shortness of breath. No PND, no orthopnea. RESPIRATORY: No cough, no hemoptysis. GI: No nausea, no vomiting. No abdominal pain. : No hematuria. No polyuria. MUSCULOSKELETAL: No joint swelling. PSYCHIATRIC: Not anxious. No depression. No suicidal thoughts. No homicidal thoughts. SKIN: Intact. No rash. PHYSICAL EXAMINATION: V/S: Blood pressure 126/78, respiratory rate 20, heart rate 64, temperature 98.2 , saturation 96. HEENT: Normocephalic, atraumatic. Mucosa dry. Pallor positive. NECK: Supple. No JVD, no carotid bruit. No lymphadenopathy. LUNGS: Clear to auscultation. No rales or rhonchi. HEART: S1, S2 normal. No S3. No murmur, gallop or regurgitation. ABDOMEN: Soft, nontender. Bowel sounds active. No rigidity. No rebound or guarding. No CVA tenderness. EXTREMITIES: No clubbing, cyanosis or pedal edema. MUSCULOSKELETAL: No joint swelling. NEUROLOGIC: Awake, alert, oriented times three. No focal deficit. LYMPHATIC: No lymph nodes palpable. SKIN: Intact. LABS: Sodium 138, potassium 3.4, chloride 107, bicarb 21, BUN 7, creatinine 0.76, glucose 229. White count 4.97, hemoglobin 13.3, hematocrit 37.2, platelet count 173. ASSESSMENT: 1. STATUS POST HYPEROSMOLAR HYPERGLYCEMIA 2. STATUS POST HYPONATREMIA 3. DIABETES, NEW ONSET 4. HYPERTENSION PLAN: 1. Continue NPH 24 units twice a day. 2. Metformin 500 mg twice day. 3. Out of bed to chair. 4. Activity as tolerated. 5. Will follow up with the patient in daily rounds. TIME SPENT: More than 35 minutes today. [facility]
--- NOTE | 2017-05-13 14:42 | PN ---
DATE OF SERVICE: 04/24/17 SUBJECTIVE: The patient had a low sugar last night of 110 for which NPH only 20 units was given, but early in the morning the sugars were in the 80's. The patient was not feeling weak or tingling or any blurred vision. The patient is up and about walking. He is concerned that he doesn't have money at this time to go out of the hospital and buy the medications. Requesting to stay one more day. REVIEW OF SYSTEMS: CONSTITUTIONAL: No fever, no chills. HEENT: Normal. ENDOCRINE: No weight gain, no weight loss. CVS: No angina symptoms. No CHF symptoms. No palpitations. No atypical chest pain for CAD. No shortness of breath. No PND, no orthopnea. RESPIRATORY: No cough, no hemoptysis. GI: No nausea, no vomiting. No abdominal pain. : No hematuria. No polyuria. MUSCULOSKELETAL: No joint swelling. PSYCHIATRIC: Not anxious. No depression. No suicidal thoughts. No homicidal thoughts. SKIN: Intact. No rash. PHYSICAL EXAMINATION: V/S: Blood pressure 137/85, respiratory rate 16, heart rate 78, temperature 97.9 , saturation 96. HEENT: Normocephalic, atraumatic. Mucosa dry. NECK: Supple. No JVD, no carotid bruit. No lymphadenopathy. LUNGS: Clear to auscultation. No rales or rhonchi. HEART: S1, S2 normal. No S3. No murmur, gallop or regurgitation. ABDOMEN: Soft, nontender. Bowel sounds active. No rigidity. No rebound or guarding. No CVA tenderness. EXTREMITIES: No clubbing, cyanosis or pedal edema. MUSCULOSKELETAL: No joint swelling. NEUROLOGIC: Awake, alert, oriented times three. No focal deficit. LYMPHATIC: No lymph nodes palpable. SKIN: Intact. LABS: Sodium 138, potassium 3.4, chloride 107, bicarb 21, BUN 7, creatinine 0.76, glucose 229. White count 4.97, hemoglobin 13.3, hematocrit 37.2, platelet count 173. ASSESSMENT: 1. HYPEROSMOLAR HYPERGLYCEMIA, WHICH IS BETTER 2. DIABETES, NEW ONSET 3. HYPERTENSION LABILE 4. STATUS POST HYPONATREMIA 5. HYPOKALEMIA 6. ANEMIA, PROBABLY BY HEMODILUTION PLAN: 1. Continue NPH 24 in the morning and 28 at night. 2. Metformin 500 mg twice daily. 3. Diabetic diet. 4. Will follow up with the patient in daily rounds. TIME SPENT: More than 35 minutes today MACI
--- NOTE | 2017-05-13 15:00 | DS ---
DATE OF SERVICE: 04/25/17 FINAL DIAGNOSIS: 1. HYPEROSMOLAR HYPERGLYCEMIA 2. STATUS POST HYPONATREMIA FROM THE ELEVATED SUGAR 3. HYPOKALEMIA, RESOLVED 4. ACUTE RENAL FAILURE, RESOLVED 5. HYPERTENSION LABILE 6. OBESITY PLAN: 1. Discharge the patient home. 2. New medications: Novolin 70/30 24 units in the morning and 20 units at night. Metformin 1000 mg twice a day 3. Diet: Cardiac, diabetic and healthy 4. Activity: As much as tolerated. 5. Continue home medications of Norvasc 10 mg p.o. daily, Lisinopril 40 p.o. twice daily, Metoprolol 15 twice daily. DISEASE SPECIFIC EDUCATION: About the new onset diabetes, diet control education was carried out during the hospital stay. HOSPITAL COURSE: Jason Blair, who is a 47 year old male who was initially seen at the [facility] for the follow up. Outpatient labs done which showed the sugar of 559 and sodium was 131. At that time the patient was suggested to go to the emergency room for the admission. His A1C was 11.7. By the time the patient came to the emergency room his sugars were 720. BUN 23, creatinine 2.46. At that time, the patient was admitted to the hospital to SCU and started on the Insulin drip with 5. Gradually titrated down. Meanwhile, slowly the patient being titrated off of the Insulin drip and started on the NPH insulin 24 units and 24 units along with the Metformin 1000 twice daily. The patient did not have insurance. There was a problem of payment source. We have to choose the cheapest Insulin which is available. Gradually, the patient is up and about walking and did not have any problems with the regimen of NPH 24 in the morning and 20 at night. Sugars have been controlled by that. At that time, the patient was discharged to home. TIME SPENT: MORE THAN 75 MINUTES TODAY [facility]
== END 2017-04-25 11:45 | disposition home or self-care (01) | DRG 638 ==
LOC: ED 17:38 → SCU 19:17 → MEDSURG A 04-24 13:55
PROVIDERS: ADMIT Emergency Medicine; ATTEND Emergency Medicine
DX: E11.00 Type 2 diabetes mellitus with hyperosmolarity without nonketotic hyperglycemic-hyperosmolar coma (NKHHC) (principal); N17.9 Acute kidney failure, unspecified; E87.1 Hypo-osmolality and hyponatremia; I10 Essential (primary) hypertension; D64.9 Anemia, unspecified; R06.02 Shortness of breath; E66.9 Obesity, unspecified; R05 Cough; E87.6 Hypokalemia; Z91.14 Patient's other noncompliance with medication regimen; Z79.899 Other long term (current) drug therapy
CPT/HCPCS: 36415; 80048; 80053; 81001; 82803; 82947; 82962; 84443; 84484; 85025; 93005; 93010; 97802; 99284

== ENCOUNTER 2018-09-09 22:17 | Inpatient (IN) ==
--- NOTE | 2018-09-09 22:56 | ED.PDOC ---
General ED Provider: Dr. NASIM UNDERWOOD MD Chief Complaint: Diarrhea Stated Complaint: diarrhea Time Seen by Physician: 22:45 Mode of Arrival: Walk-In Information Source: Patient Exam Limitations: No limitations Nursing and Triage Documentation Reviewed and Agree: Yes Does patient meet sepsis criteria?: No If yes, has appropriate treatment been initiated?: Yes System Inflammatory Response Syndrome: Not Applicable Sepsis Protocol: For patient's 13 years and over: Temp is 96.8 and below OR 101 and greater Pulse >90 BPM Resp >20/minute Acutely Altered Mental Status Are patient's symptoms suggestive of a new infection, such as: -Pneumonia -Skin, Soft Tissue -Endocarditis -UTI -Bone, Joint Infection -Implantable Device -Acute Abdominal Infection -Wound Infection -Meningitis -Blood Stream Catheter Infection -Unknown Review of Systems - Review Of Systems Constitutional: Reports: Loss of appetite Eyes: Reports: No symptoms Ears, Nose, Mouth, Throat: Reports: No symptoms Respiratory: Reports: No symptoms Cardiac: Reports: No symptoms GI: Reports: Diarrhea, Nausea : Reports: No symptoms Musculoskeletal: Reports: No symptoms Skin: Reports: No symptoms Neurological: Reports: No symptoms Endocrine: Reports: No symptoms Hematologic/Lymphatic: Reports: No symptoms All Other Systems: Reviewed and Negative Past Medical History - Past Medical History Endocrine: Reports: Unknown Cardiovascular: Reports: Unknown Respiratory: Reports: Unknown Hematological: Reports: Unknown Gastrointestinal: Reports: Unknown Genitourinary: Reports: Unknown Neuro/Psych: Reports: Unknown Musculoskeletal: Reports: Unknown Cancer: Reports: Unknown - Surgical History General Surgical History: Reports: Unknown - Family History Family History: Reports: Unknown - Social History Smoking Status: Current every day smoker, Heavy tobacco smoker Hx Substance Use: No Alcohol Screening: Occasionally - Immunizations Tetanus Shot up to Date: (UNKNOWN) Physical Exam - Physical Exam Appearance: Obese Ill-appearing: Mild Pain Distress: None GI/: Bowel sounds hypoactive Critical Care Note - Critical Care Note Total Time (mins): 0 Course - Course Hematology/Chemistry: 09/09/18 23:05 09/09/18 23:05 Orders, Labs, Meds: Lab Review 09/09/18 09/09/18 23:05 23:05 WBC 11.69 H RBC 5.37 Hgb 14.8 Hct 42.1 MCV 78.4 L MCH 27.6 MCHC 35.2 RDW Coeff of Adair 12.5 Plt Count 257 Immature Gran % (Auto) 0.3 Neut % (Auto) 73.2 Lymph % (Auto) 18.4 Smith % (Auto) 7.4 Eos % (Auto) 0.3 Baso % (Auto) 0.4 Immature Gran # (Auto) 0.0 Neut # (Auto) 8.6 H Lymph # (Auto) 2.2 Smith # (Auto) 0.9 Eos # (Auto) 0.0 Baso # (Auto) 0.1 Sodium 127.4 L Potassium 4.64 Chloride 83.2 L Carbon Dioxide 24.2 Anion Gap 24.64 BUN 28.7 H Creatinine 1.34 H Estimated GFR (MDRD) 57.00 BUN/Creatinine Ratio 21.41 Glucose 890.3 H* Calcium 9.72 Total Bilirubin 1.45 H AST 43.8 ALT 56.2 H Alkaline Phosphatase 197.9 H Total Protein 7.30 Albumin 4.94 Globulin 2.36 Albumin/Globulin Ratio 2.09 Orders Category Date Time Status IV [ED IV/MEDIPORT/POWERPORT] .ONCE EMERGENCY 09/09/18 22:57 Active CBC W/ AUTO DIFF Stat LAB 09/09/18 23:05 Completed CMP [COMPREHENSIVE METABOLIC PANEL] Stat LAB 09/09/18 23:05 Completed UA [URINALYSIS C & S IF INDICATED] Stat LAB 09/09/18 23:47 Uncollected 0.9 % Sodium Chloride [Saline Flush] MEDS 09/09/18 22:57 Ordered 1 syr IVF PRN PRN Insulin Regular, Human [Humulin R] MEDS 09/09/18 23:46 Discontinued 8 unit IV ONCE STA Ondansetron HCl/Pf [Zofran 4 mg/2 ml] MEDS 09/09/18 22:57 Discontinued 4 mg IVP ONCE STA Ringers Lactated Solution [Lactated Ringers] 1,000 ml MEDS 09/09/18 22:57 Discontinued IV BOLUS KUB [ABDOMEN 1 VIEW] Stat RADS 09/09/18 22:57 Completed Medications Generic Name Dose Route Start Last Admin Trade Name Freq PRN Reason Stop Dose Admin Sodium Chloride 1 syr 09/09/18 22:57 09/09/18 23:18 Saline Flush IVF 1 syr PRN PRN Administration To flush IV Discontinued Medications Generic Name Dose Route Start Last Admin Trade Name Freq PRN Reason Stop Dose Admin Lactated Ringer's 1,000 mls @ 1,000 mls/hr 09/09/18 22:57 09/09/18 23:19 Lactated Ringers IV 09/09/18 23:56 1,000 mls/hr BOLUS STA Administration Insulin Human Regular 8 unit 09/09/18 23:46 09/09/18 23:55 Humulin R IV 09/09/18 23:47 8 unit ONCE STA Administration Ondansetron HCl 4 mg 09/09/18 22:57 09/09/18 23:21 Zofran 4 Mg/2 Ml IVP 09/09/18 22:58 4 mg ONCE STA Administration Vital Signs: Temp Pulse Resp BP Pulse Ox 09/09/18 22:17 97.2 F L 75 20 178/108 H 96 Departure - Departure Time of Disposition: 01:15 Disposition: ADMITTED INPATIENT Discharge Problem: Hyperglycemia due to type 2 diabetes mellitus Qualifiers: Diabetes mellitus terminal operations manager insulin use: unspecified intermediate insulin use status Qualified Code(s): E11.65 - Type 2 diabetes mellitus with hyperglycemia Diarrhea Qualifiers: Diarrhea type: unspecified type Qualified Code(s): R19.7 - Diarrhea, unspecified Condition: Good Pt referred to PMD for follow-up: Yes IPMP verified?: No Allergies/Adverse Reactions: Allergies No Known Allergies Allergy (Verified 09/09/18 22:29) Home Medications: Ambulatory Orders 1 [No Reported Medications] 09/09/18 Transfer Form Completed: No Disposition Discussed With: Patient
[2018-09-09] MEDS ORDERED: LACTATED RINGERS 1,000 ML IV STA (22:57)
[2018-09-09] MEDS ORDERED: ZOFRAN 4 MG/2 ML IVP STA (22:57)
--- NOTE | 2018-09-09 23:33 | DI ---
EXAM: Single-view abdomen HISTORY: Diarrhea COMPARISON: None. FINDINGS: Clips are seen in the right upper quadrant from prior cholecystectomy. There is a paucity of gas within the abdomen.. No evidence obstruction or mass. IMPRESSION: No acute findings
[2018-09-09] MEDS ORDERED: HUMULIN R IV STA (23:46)
[2018-09-10] MEDS ORDERED: LACTATED RINGERS 1,000 ML IV STA (00:25)
[2018-09-10 02:05] VITALS: BMI 34.7
[2018-09-10] MEDS: HUMULIN R SUBCUT PRN ×7 (02:54→20:59)
[2018-09-10] MEDS: LACTATED RINGERS 1,000 ML IV SCH ×3 (02:56→20:14)
--- NOTE | 2018-09-10 04:41 | CT ---
EXAM: CT abdomen pelvis without intravenous contrast 09/10/2018. Sagittal and coronal reformatted i mages obtained HISTORY: Elevated bilirubin COMPARISON: 09/09/2018 FINDINGS: Diffuse hepatic steatosis post cholecystectomy. The liver shows no acute abnormality. The adrenal glands and kidneys show no acute abnormality. The spleen and pancreas show no acute abnormality. There is no bowel obstruction. Normal appendix. Unremarkable urinary bladder. No free air or free fluid. Diverticulosis without diverticulitis. There is no acute osseous abnorma lity. IMPRESSION: 1. Hepatic steatosis post cholecystectomy. 2. No urinary or bowel obstruction and normal appendix 3. Diverticulosis without diverticulitis 4. No acute inflammatory process identified within the abdomen or pelvis.
--- NOTE | 2018-09-10 14:52 | CT ---
EXAM: CT of the lumbar spine without contrast History: Bilateral lower extremity numbness and weakness. Comparison: CT abdomen pelvis 09/10/2018 Technique: Multiplanar CT images through the lumbar spine were obtained without the administration o f IV contrast Findings: No acute fracture or subluxation of the lumbar spine. Moderate to severe disc space narrowing at L5- S1 with endplate sclerosis and osteophyte formation. Mild to moderate disc space narrowing seen else where with a few prominent osteophytes. T12-L1: No significant bony central canal stenosis or bony neural foraminal narrowing. L1-L2: No significant bony central canal stenosis or bony neural foraminal narrowing. L2-L3: Small disc protrusion effacing anterior thecal sac with no significant central canal stenosis . Moderate right and mild left bony neural foraminal narrowing secondary to ligamentous and facet hy pertrophy. L3-L4: No significant bony central canal stenosis. Moderate right and mild left bony neural foramin al narrowing secondary to ligamentous and facet hypertrophy. L4-L5: No significant bony central canal stenosis. Moderate to severe right and moderate left bony neural foraminal narrowing secondary to ligamentous and facet hypertrophy. L5-S1: No significant bony central canal stenosis. Severe left and moderate right bony neural paradise inal narrowing secondary to ligamentous and facet hypertrophy. Impression: 1. No acute osseous abnormality of the lumbar spine. 2. Degenerative changes with level by level analysis as detailed above
[2018-09-10] MEDS: GLUCOPHAGE PO SCH (16:37)
--- NOTE | 2018-09-10 22:35 | CT ---
EXAM: CT scan brain without contrast HISTORY: Hyperglycemia COMPARISON: None. FINDINGS: Contiguous axial image were obtained from skull base to the convexities without contrast u tilizing 5-mm collimation. Sagittal and coronal reconstructions were imaged and reviewed.. The ventr icles and CSF spaces are within normal limits. There are no acute intracranial findings.. The visua lized paranasal sinuses and mastoid air cells are clear. The calvarium is intact. IMPRESSION: No acute intracranial findings.
[2018-09-10] MEDS ORDERED: LOVENOX SUBCUT SCH (23:00)
[2018-09-10] MEDS: NORVASC PO SCH (23:34)
[2018-09-10] MEDS: ZESTRIL PO SCH (23:34)
[2018-09-11] MEDS: LACTATED RINGERS 1,000 ML IV SCH ×3 (04:08→20:42)
[2018-09-11] MEDS: HUMULIN R SUBCUT PRN ×4 (06:00→20:34)
[2018-09-11] MEDS: NORVASC PO SCH (08:03)
[2018-09-11] MEDS: GLUCOPHAGE PO SCH ×2 (08:03→16:51)
[2018-09-11] MEDS: ZESTRIL PO SCH (08:03)
--- NOTE | 2018-09-11 11:59 | HP ---
DATE OF SERVICE: 09/10/18 CHIEF COMPLAINT: Vomiting and diarrhea SOURCE OF HISTORY: The patient plus records from the emergency room, reliability above marginal. HISTORY OF PRESENT ILLNESS: The patient had been experiencing more frequent bowel movements since more than a month ago. Having about two bowel movements a day. He works on the [employer] and he works 6 hours on and 6 hours off over the 24 hours. Later on the patient had experienced vomiting after meals. The patient claimed that he had vomited about 10 times in the last 24 hours. Diarrhea was about 5. Prior to that the patient was able to do his job where he is out for 6 hours. The patient does have a bowel movement as well as vomiting with eating. He had been experiencing leg cramps as well as forearms. He also told me that when he wakes up in the morning that he is foggy and that he is not able to direct his legs or his leg doesn't go to where he would like it to be. That more or less resolves after awhile. He had not been taking any medication for his diabetes. The patient after a workup in the emergency room was felt to need an admission. The ER physician did contact me with regards to his blood sugar that was elevated. I did ask him to get an arterial blood gasses to see the status. His CO2 on the CMP was slightly low but not significant. I did see the patient in the emergency room about 1:00am and examined him before the admission. The patient was alert with movement of all extremities and no significant headaches. He has some complaint of some blurring of vision. The patient was given 2 liters almost of normal saline in the emergency room. He also noted that he had lost a significant amount of weight. He used to weigh about 230- 235. He did weigh at the emergency room 206 pounds. I asked whether he lives in [place] and he said no he does not have a permanent residence. When he is off the boat he will stop in [place] and stay with his sister and sometimes go and see his kids the time that he is off from work. His kids are not in [place]. PAST PERSONAL HISTORY: The patient was diagnosis with diabetes more than 20 years ago in [place] and was prescribed Metformin. He did take the medication for over a year. He was not given any diet instruction by the doctor but he changed his diet and he got better and felt better. He claims to have had physical examination including blood test and passed the examination. 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 He has a physical examination for another job about 2 years ago and he passed his examination but there was no blood test done. The patient's problems are hypertension, diabetes, kidney stone and had gallbladder surgery 30 years ago. FAMILY HISTORY: Brother had heart disease as well as hypertension Father had COPD and Tuberculosis Mother Hypertension and diabetes as well as heart problems Sister had breast carcinoma SOCIAL HISTORY: The patient is and works at [employer] as [employer]. He smokes about a half pack of cigarettes a day. Still actively smoking today. The patient was admitted to this facility 04/20/17 because of hyperglycemia. The patient was discharged with insulin as well as Metformin. He also was in the emergency room 10/21/16 for hypertension blood pressure 194/122. He weighed 230 pounds then. MEDICATIONS: No medications for diabetes or hypertension ALLERGIES: No known drug allergies REVIEW OF SYSTEMS: CONSTITUTIONAL: The patient had no fever or chills but did not feel well, somewhat fatigued. PROPOSAL SPECIALIST: Denies any significant or severe headaches and no ataxia. No syncopal episode or seizure event. VISUAL: The patient is complaining of blurred vision but no double vision or transient loss of vision. AUDITORY: Hearing is adequate and denies any tinnitus, pain or drainage. RESPIRATORY: Denies any significant cough. He does have some cough probably from smoking and denies any shortness of breath and no hemoptysis. CARDIOVASCULAR: The patient denies any chest pain or chest tightness. GASTROINTESTINAL: The patient had vomiting post pharyngeal as well as bowel movement post pharyngeal. The patient had more bowel movement and increasing vomiting the last day prior to presentation. He was told to go home. GENITOURINARY: The patient has frequency of urination. MUSCULOSKELETAL: The patient has forearm cramps as well as leg cramps. ENDOCRINE: The patient has polyuria and polydipsia. INTEGUMENT: No rash or pruritus. No ecchymosis. HEMATOLOGIC: No history of prolonged bleeding or spontaneous bleeding. PSYCHIATRIC: Affect appears to be normal. This patient however is noncompliant for his problems. PHYSICAL EXAMINATION: GENERAL: We have a 48 year old male admitted to the hospital because of markedly elevated blood sugar 890.3mg%, CO2 was 24.2. Sodiums and Chloride are low 127 and 83 respectively. AST normal, ALT elevate, 56.2, Alkaline phosphatase 197.9. The patient was given 8 units of regular insulin in the emergency room. He is alert, oriented and responsive. He is complaining of some blurring vision. HEAD: Unremarkable. Scalp no active dermatis. FACE: Symmetrical and equal with no facial weakness. No tenderness in the frontal and maxillary sinus areas. EYES: Pupils equal/reactive to light. Conjunctivae not pale. Sclerae not icteric. About 3mm in size. MOUTH: Unremarkable. THROAT: No inflammation, tumors or exudate. NECK: No masses. Bruit in the right side. No tenderness. No rigidity. CHEST: Symmetrical and equal with good expansion. LUNGS: Breath sounds are heard in both sides with no rales or wheezing. Slightly diminished HEART: Audible and regular with good tones. No murmurs. ABDOMEN: Soft, pendulous with no significant tenderness. No masses and no bruit. No herniation. EXTERNAL GENITALIA: Not examined. RECTAL: Not performed LOWER EXTREMITIES: Symmetrical and equal with no significant edema. Pedal pulses are present. UPPER EXTREMITIES: Symmetrical and equal ASSESSMENT: 1. Severe hyperglycemia 2. History of Diabetes Mellitus, type undetermined 3. Hypertension, not controlled 4. Noncompliant 5. Chronic tobacco use and abuse persistent 6. Elevated ALT and Alkaline phosphatase source undetermined. TIME SPENT: GREATER THAN 65 MINUTES MTDD
--- NOTE | 2018-09-11 13:03 | PN ---
DATE OF SERVICE: 09/10/18 SUBJECTIVE: The patient was seen at 9:30pm today. The patient is alert and still complaining of blurred vision. I did try to explain to him. I also informed him to see an eye doctor and we will try to make that appointment. Also told him that when we schedule him for a nerve conduction as well as electromyogram. The patient does tell me that upon waking up in the morning that he is foggy and he is not able to direct his legs or his legs will not go to where he wants it to go. He however has no sensory deficits in both feet and legs. He denies any burning or pain or tingling on the toes. The patient had bruit on the right side of the neck and the carotid studies will be scheduled as well a CAT scan of the head because of the sensation of being foggy in the morning and not being able to move legs in the direction that he wanted. Studies to more or less quantify what type of diabetes does he have. I ordered GAD65 Autoantibody as well as insulin level and plasma C- Peptide. LUNGS: Clear to auscultation in both sides, somewhat diminished. HEART: Audible and regular with good tones ABDOMEN: Unremarkable LOWER EXTREMITIES: No edema. No pain in the legs This patient will be Lovenox 40mg SUBCUT daily. His blood pressure is in the upper limit of normal or beyond and this patient's medication will be resumes consisting of Amlodipine 5mg a day and Lisinopril 20mg daily. Emphasized to this patient that he needs to follow his medication. He is already getting the complications of his illness. MACI
--- NOTE | 2018-09-11 13:27 | US ---
EXAM: ULTRASOUND CAROTID DUPLEX, BILATERAL HISTORY: Carotid bruit FINDINGS: Suarez-scale ultrasound, color Doppler and spectral analysis was performed. Velocities are in meters per second. There are scattered areas of atherosclerotic plaque which are relatively mild. RIGHT: External carotid artery peak systolic velocity: 1.23/0.19 Common carotid artery peak systolic velocity/end diastolic velocity: 1.05/0.27 Internal carotid artery peak systolic velocity: 0.89 ICA/CCA peak systolic velocity ratio: 0.8 ICA end diastolic velocity: 0.29 LEFT: External carotid artery peak systolic velocity: 1.03/0.17 Common carotid artery peak systolic velocity/end diastolic velocity: 1.02/0.25 Internal carotid artery peak systolic velocity: 0.71 ICA/CCA peak systolic velocity ratio: 0.7 ICA end diastolic velocity: 0.25 The right and left vertebral arteries were antegrade. IMPRESSION: 1. There are scattered areas of atherosclerotic plaque bilaterally which are relatively mild. 2. Internal carotid artery peak systolic velocities and ICA/CCA peak systolic velocity ratios indica te no hemodynamically significant stenosis bilaterally. 3. Both vertebral arteries were antegrade.
[2018-09-11] MEDS ORDERED: LOVENOX SUBCUT SCH (21:00)
[2018-09-11] MEDS ORDERED: TRADJENTA ONE (22:15)
[2018-09-11] MEDS ORDERED: TRADJENTA PO SCH (22:30)
[2018-09-12 05:13] VITALS: BP 127/78; TEMP 98
[2018-09-12] MEDS: LACTATED RINGERS 1,000 ML IV SCH (05:32)
[2018-09-12] MEDS: HUMULIN R SUBCUT PRN (05:35)
[2018-09-12] MEDS ORDERED: GLUCOPHAGE PO SCH (08:00)
[2018-09-12] MEDS: ZESTRIL PO SCH (08:49)
[2018-09-12] MEDS: NORVASC PO SCH (08:49)
--- NOTE | 2018-09-20 13:34 | DS ---
DATE OF SERVICE: 09/12/18 PATIENT IDENTIFICATION: 48-year-old male was admitted from the emergency room because of hyperglycemia without any acidosis. Blood sugar was 890. This patient had been diagnosed with diabetes more than 20 years ago and was prescribed Metformin at that time. He did take Metformin for about one year and changed his diet habits. He claimed that he felt better and was doing well. He had a physical examination for work and passed the examination. The rest of the examination for work was about two years ago however there were no blood tests done during that time. The patient on admission had no listed medications that he is taking including hypertension. This patient claimed to have experienced more than one month ago. He may have 2 to 3 bowel movements a day. He works at the [employer] and his shoft to work is 6 hours on and 6 hours off. 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 Also started vomiting maybe three weeks ago. He vomits maybe twice a day. Vomiting has increased the last day. He was told by the [employer] that he works for that he should go home. He then got off the boat and was transported however he ended up in the emergency room. His legs as well as forearms are also cramping. The patient was then admitted for hyperglycemia as well as hypertension uncontrolled and noncompliance. The patient's past medical diagnosis - hypertension, diabetes mellitus, probably type 2, renal stones, cholecystectomy some 30 years ago. The patient smokes cigarettes a pack of day or more. The patient's workup during this hospitalization is CBC times three showing mild leukocytosis on the first two 09/09 and 09/10 and then back to normal on . The MCV is slightly lower 78.4, 78 and then 80.2 and MCH is on the border 27.6 and 27.2 and 27.5. This patient most likely has iron deficiency. Chemistry times three showed initial hyponatremia and hypochloremia 127 and 83 respectively. This has more or less returned to normal on the following day and normal on the third hospital day 09/11/18. His A1C was 13.5. Insulin level fasting was 3.2. Normal range 2.6 to 24.9. Alkaline phosphatase on admission was high 197.9 and gradually returned toward normal but not normal. Last alkaline phosphatase was 128.0. The upper normal is 124. Plasma C-Peptide level is 0.9. This patient most likely now is Type 1. The plasma C-peptide level was not available at the time of discharge. Also had elevated ALT and acute hepatitis panel was negative. Prostate specific antigen was 0.5. The patient had chest x-ray. Clips are seen in the right upper quadrant otherwise unremarkable. CT scan of the abdomen and pelvis showed hepatic steatosis post cholecystectomy. No urinary or bowel obstruction noted. Diverticulosis without diverticulitis. No acute inflammatory process identified within the abdomen or pelvis. CT scan of the lumbar spine was done because of his complaints of an inability to guide his lower extremities upon waking up in the morning. He does not follow commands of his head. CT scan however of the lumbar spine does not show any acute osseous abnormalities. CT scan of the head because of blurred vision, neuromuscular disconnect to the lower extremity. This patient is going to be scheduled for a nerve conduction as well as EMG. He is to be scheduled also to see a eye M.D. to make sure he does not have any retinal problems from the diabetes. Carotid ultrasound does not show any significant stenosis of either internal carotids. The patient at the time of discharge alert, ambulatory with movement of all extremities, up and down. No facial weakness. No tenderness in the calf muscles to palpation and no pain upon standing. The patient was given Insulin sliding scale while in the hospital. Sugar had moderated and fasting sugar on 09/11 was 260.4 mg%. He is alert, oriented times four, not dyspneic or tachypneic. Lungs are clear to auscultation both sides. No rales or wheezing. Heart is audible and regular with good tones. Abdomen unremarkable. This patient is then discharged with an oral medication. I did not have the results of the plasma C-peptide level as well as the SHELL 65 autoantibody at time of discharge. This patient was discharged with Metformin 1000 mg to be taken one before breakfast and one before supper and Tradjenta 5 mg before breakfast. He also was issued a prescription of Amlodipine 5 mg daily and Lisinopril 20 mg daily. He is to see me this coming or Tuesday and before if there are any concerns. FINAL DIAGNOSES: 1. Hyperglycemia secondary to diabetes mellitus probably type 1.5. 2. Hypertension uncontrolled. The patient had stopped his medication. 3. Noncompliant patient. 4. Chronic tobacco use and abuse, persistent. 5. Elevated ALT as well as alkaline phosphatase, etiology undetermined. 6. Hepatitis panel negative. PLAN: 1. The patient will be followed and I emphasized to him that he needs to take his medication as prescribed or else he will develop complications much sooner than later. TIME SPENT: GREATER THAN 30 MINUTES MTDD
== END 2018-09-12 11:00 | disposition home or self-care (01) | DRG 639 ==
LOC: ED 22:17 → MEDSURG B 09-10 01:12
PROVIDERS: ADMIT General Practice; ATTEND General Practice
DX: E11.65 Type 2 diabetes mellitus with hyperglycemia (principal); I16.0 Hypertensive urgency; R63.0 Anorexia; R11.0 Nausea; R19.7 Diarrhea, unspecified; Z72.0 Tobacco use; Z91.19 Patient's noncompliance with other medical treatment and regimen
CPT/HCPCS: 36415; 80053; 80074; 81001; 82803; 82947; 82962; 82977; 83036; 83519; 83525; 83735; 84681; 85025; 93005; 93010; 96361; 96374; 96375; 97802; 99284

== ENCOUNTER 2018-09-25 12:25 | Outpatient (CLI) | END 2018-09-25 12:26 | disposition home or self-care (01) | LOC: RHC-LAB 12:25 | PROVIDERS: ATTEND General Practice | DX: E11.65 Type 2 diabetes mellitus with hyperglycemia (principal) | CPT/HCPCS: 36415; 83037 ==

== ENCOUNTER 2018-10-04 16:38 | Outpatient (CLI) | END 2018-10-04 16:39 | disposition home or self-care (01) | LOC: LAB 16:38 | PROVIDERS: ATTEND General Practice | DX: E11.65 Type 2 diabetes mellitus with hyperglycemia (principal); E87.6 Hypokalemia; N17.8 Other acute kidney failure | CPT/HCPCS: 36415; 80053; 81001; 85025; 87086 ==

== ENCOUNTER 2018-10-06 08:03 | Outpatient (CLI) | END 2018-10-06 08:04 | disposition home or self-care (01) | LOC: RHC-LAB 08:03 → FCC-LAB 08:04 | PROVIDERS: ATTEND General Practice | DX: E11.65 Type 2 diabetes mellitus with hyperglycemia (principal); E87.6 Hypokalemia; N17.8 Other acute kidney failure; N39.0 Urinary tract infection, site not specified; R82.90 Unspecified abnormal findings in urine; E78.5 Hyperlipidemia, unspecified; I10 Essential (primary) hypertension | CPT/HCPCS: 36415; 80061; 80069; 81001; 83519; 83525; 84681 ==